=== PATIENT | male | born 1960 | race Caucasian/White ===

== ENCOUNTER 2017-02-06 09:52 | Emergency (ER) | payer MEDICAID ==
[~2017-02-06] VITALS: Ht 175.3 cm; Wt 79.8 kg
--- NOTE | 2017-02-06 10:03 | NUR ---
PATIENT TO ED CO SOB POSSIBLY DT ASTHMA ATTACK, PER PATIENT HE HAS HX OF ASTHMA HOWEVER HE'S NOT ON ANY MEDICATION FOR IT. PATIENT IS AFEBRILE. SATING 98% ON ROOM AIR,VSS
--- NOTE | 2017-02-06 10:04 | NUR ---
PENDING MD JOSE
--- NOTE | 2017-02-06 10:05 | NUR ---
MD THORNE AT BEDSIDE
[2017-02-06] MEDS ORDERED: predniSONE 20 MG TABLET ONE ×2 (10:14→10:18)
--- NOTE | 2017-02-06 10:17 | NUR ---
CALLED RT FOR BREATHING TREATMENT
[2017-02-06] MEDS ORDERED: IPRATROPIUM NEB FS 0.5 MG/2.5 ML AMPUL.NEB ONE (10:23)
[2017-02-06] MEDS ORDERED: ALBUTEROL FS 2.5 MG/3 ML VIAL.NEB ONE (10:23)
--- NOTE | 2017-02-06 10:27 | NUR ---
Breathing treatment in progress at .
[2017-02-06] MEDS ORDERED: ALBUTEROL FS 2.5 MG/3 ML VIAL.NEB NEB ONE (10:30)
[2017-02-06] MEDS ORDERED: predniSONE 20 MG TABLET PO ONE (10:30)
[2017-02-06] MEDS ORDERED: IPRATROPIUM NEB FS 0.5 MG/2.5 ML AMPUL.NEB NEB ONE (10:30)
--- NOTE | 2017-02-06 10:48 | NUR ---
Patient discharged to home in stable condition. Written and verbal after care instructions given. Patient verbalizes understanding of instruction.
[2017-02-06 10:49] VITALS: BP 135/78
== END 2017-02-06 10:50 | disposition home or self-care (01) ==
LOC: ER 09:54
DX: J45.901 Unspecified asthma with (acute) exacerbation (principal); F17.200 Nicotine dependence, unspecified, uncomplicated
CPT/HCPCS: 93005; 94640; 99283; A4606; J7512; Z7610

== ENCOUNTER 2017-06-19 15:48 | Emergency (ER) | payer MEDICAID ==
[~2017-06-19] VITALS: Ht 175.3 cm; Wt 83.9 kg
[2017-06-19 15:50] VITALS: BP 134/87
== END 2017-06-19 16:11 | disposition home or self-care (01) ==
LOC: ER 15:49
DX: R21 Rash and other nonspecific skin eruption (principal); J45.909 Unspecified asthma, uncomplicated; F17.200 Nicotine dependence, unspecified, uncomplicated; Z60.2 Problems related to living alone
CPT/HCPCS: 99281; A4606; Z7610; Z7502

== ENCOUNTER 2017-08-21 10:21 | Emergency (ER) | payer MEDICAID, OTHER ==
[~2017-08-21] VITALS: Ht 175.3 cm; Wt 85.7 kg
[2017-08-21 10:26] VITALS: BP 151/94
[2017-08-21] MEDS ORDERED: IPRATROPIUM NEB FS 0.5 MG/2.5 ML AMPUL.NEB NEB ONE (11:00)
[2017-08-21] MEDS ORDERED: DEXAMETHASONE SOLN 1 MG/1 ML UDC PO ONE (11:00)
[2017-08-21] MEDS ORDERED: ALBUTEROL FS 2.5 MG/3 ML VIAL.NEB NEB ONE (11:00)
[2017-08-21] MEDS ORDERED: DEXAMETHASONE 4 MG TABLET ONE (11:15)
[2017-08-21] MEDS ORDERED: DEXAMETHASONE 1 MG TABLET ONE (11:15)
[2017-08-21] MEDS ORDERED: ALBUTEROL FS 2.5 MG/3 ML VIAL.NEB ONE (11:18)
[2017-08-21] MEDS ORDERED: IPRATROPIUM NEB FS 0.5 MG/2.5 ML AMPUL.NEB ONE (11:18)
[2017-08-21] MEDS ORDERED: DEXAMETHASONE 1 MG TABLET PO ONE (11:30)
== END 2017-08-21 12:26 | disposition home or self-care (01) ==
LOC: ER 10:24
DX: J45.901 Unspecified asthma with (acute) exacerbation (principal); J06.9 Acute upper respiratory infection, unspecified; F17.200 Nicotine dependence, unspecified, uncomplicated; Z60.2 Problems related to living alone
CPT/HCPCS: 71045-TC; A4606; J8540; Z7610